=== PATIENT | female | born 1940 | race Caucasian/White ===

== ENCOUNTER 2022-05-03 11:51 | Emergency (ER) | payer MEDICARE, OTHER ==
[~2022-05-03] VITALS: Ht 154.9 cm; Wt 71.7 kg
[2022-05-03 12:23] VITALS: BP 113/73
--- NOTE | 2022-05-03 12:40 | NUR ---
81 Y/O FEMALE BIB DAUGHTER C/O 07/24 RIGHT SHOULDER PAIN RADIATING TO NECK AND DOWN ARM S/P FALLING XLAST WEEK. DENIES HITTING HEAD/LOC PMH:HTN
--- NOTE | 2022-05-03 14:18 | NUR ---
Patient being evaluated by DR HOOKER at bedside.
[2022-05-03] MEDS ORDERED: KETOROLAC 30 MG/ML VIAL IM ONE (14:25)
[2022-05-03] MEDS ORDERED: TRAM50TA3 PO ×2 (14:41→14:50)
[2022-05-03] MEDS ORDERED: LID5T TP (14:41)
[2022-05-03] MEDS ORDERED: DICL100G5 TP (14:41)
[2022-05-03] MEDS ORDERED: ACET-10509 PO (14:41)
[2022-05-03 14:58] VITALS: BP 118/75
--- NOTE | 2022-05-03 14:58 | NUR ---
Patient discharged with v/s stable. Written and verbal after care instructions given and explained. Patient alert, oriented and verbalized understanding of instructions. Ambulatory with steady gait. All questions addressed prior to discharge. ID band removed. Patient advised to follow up with PMD. Rx of TELENOL EXTRA STRENTH, DICLOFENAC, LIDODERM & TRAMADOL given. Patient educated on indication of medication including possible reaction and side effects. Opportunity to ask questions provided and answered.
== END 2022-05-03 14:58 | disposition home or self-care (01) ==
LOC: MED 11:51
DX: S40.011A Contusion of right shoulder, initial encounter (principal); I10 Essential (primary) hypertension; Z79.899 Other long term (current) drug therapy; W19.XXXA Unspecified fall, initial encounter; Y93.89 Activity, other specified; Y92.89 Other specified places as the place of occurrence of the external cause; Y99.8 Other external cause status
CPT/HCPCS: 73030; 96372; 99283; J1885